=== PATIENT | female | born 1985 ===

== ENCOUNTER 2017-06-30 17:40 | Emergency (ER) | payer OTHER ==
[2015-03-28 09:04] VITALS: Ht 154.9 cm; Wt 68.0 kg
[~2017-06-30] VITALS: Ht 154.9 cm; Wt 68.0 kg
[~2017-06-30 17:40] MED LIST: BUTA1CAP4 PO; Benzocaine 60 ML TP; DOCU240C67 PO; HYDR-317 PO; IBUP800T37 PO; KET10 PO; LEVO88TA43 PO; LOR5/325 PO; Lanolin TP; PREN-85 PO; PREN1TAB50 PO; TUCKS TP
--- NOTE | 2017-06-30 17:43 | ER Report ---
History and Physical Time Seen By MD: 17:42 Hx. of Stated Complaint: sore throat ear pain x 2 days. HPI/ROS was seen at urgent care sent home with majic mouthwash. no better ear and thrat pain, lymphadenopathy Allergies: Coded Allergies: No Known Drug Allergies (Verified , 06/30/17) Home Meds Active Scripts Prednisone (PREDNISONE) 50 Mg Tablet, 50 MG PO QDAY for 5 Days, #5 Prov:FRANCISCO MULLIGAN 06/30/17 Discontinued Reported Medications Butalb/Acetaminophen/Caffeine (FIORICET 50-300-40 MG CAPSULE) 1 Each Capsule, 1 EACH PO Q4H Y for HEADACHE, CAPSULE 06/07/16 Discontinued Scripts Hydrocodone Bit/Acetaminophen (HYDROCODON-ACETAMINOPHEN 5-325) 1 Each Tablet, 1 EACH PO Q4-6H Y for PAIN, #30 TAB Prov:JUDY SUAREZ MD 06/14/16 Ketorolac Tromethamine (KETOROLAC TROMETHAMINE) 10 Mg Tab, 10 MG PO Q6H, #20 TAB Prov:JUDY SUAREZ MD 06/14/16 Past Medical/Surgical History neg Hx Smoking: No Smoking Status: Never Smoker Exposure to Second Hand Smoke?: No Hx Alcohol Use: Yes Family History of: Other Constitutional Vital Sign - Last 24 Hours 06/30/17 06/30/17 06/30/17 06/30/17 17:46 18:00 18:03 18:30 Temp 98.1 Pulse 123 110 107 Resp 16 B/P (MAP) 113/82 110/82 (91) 123/73 (90) Pulse Ox 97 97 97 O2 Delivery Room Air 06/30/17 18:38 Pulse 103 B/P (MAP) 113/70 (84) Pulse Ox 93 O2 Delivery Room Air Intake and Output 06/30/17 06/30/17 07/01/17 15:00 23:00 07:00 Intake Total 800 ml Balance 800 ml Physical Exam 32 year old alert and oriented mild distress head normocephalic and atraumatic , yesenia tm non reddenedn, throay tonsild 3 plus positive lymphadenopathy, hrr, lungs cta, and soft bs x 4 quads . Medical Decision Making Data Points Laboratory Hematology Test 06/30/17 17:47 06/30/17 18:03 Group A Streptococcus Screen Negative (NEGATIVE) Monoscreen Positive (NEGATIVE) Chemistry Test 06/30/17 17:47 06/30/17 18:03 Group A Streptococcus Screen Negative (NEGATIVE) Monoscreen Positive (NEGATIVE) ED Course/Re-evaluation Clinical Indication for ER IV: Hydration ED Course iv fluids 1 liter fentanyl 50 iv for pain, decadron 10 mg po. . better after treatment mono positive f/u pcp Re-evaluation pain 2 on 0-10 after tx f/u pcp mono Decision to Disposition Date: Jun 30, 2017 Decision to Disposition Time: 18:30 Depart Departure Latest Vital Signs Vital Signs Date Time Temp Pulse Resp B/P (MAP) Pulse Ox O2 Delivery O2 Flow Rate FiO2 06/30/17 18:38 103 113/70 (84) 93 Room Air 06/30/17 17:46 98.1 16 Impression: Primary Impression: Mononucleosis Condition: Improved Disposition: HOME OR SELF-CARE Referrals: MIGUEL LAURA DO (PCP) 5 Days New Scripts Prednisone (PREDNISONE) 50 Mg Tablet 50 MG PO QDAY for 5 Days, #5 Prov: FRANCISCO MULLIGAN 06/30/17 Patient Instructions: Mononucleosis (ED) FRANCISCO MULLIGAN Jun 30, 2017 17:43
[2017-06-30] MEDS ORDERED: NS(*) 0.9% 1000 ML BAG 1,000 ML IV ONE (17:53)
[2017-06-30] MEDS ORDERED: KETOROLAC 30 MG/ML VIAL IVP ONE (17:55)
[2017-06-30] MEDS ORDERED: DEXAMETHASONE 4 MG TAB PO ONE (17:55)
[2017-06-30] MEDS ORDERED: PRED50TA22 PO (18:31)
[2017-06-30 18:38] VITALS: BP 113/70
== END 2017-06-30 18:41 | disposition home or self-care (01) ==
LOC: ER 18:04
DX: B27.90 Infectious mononucleosis, unspecified without complication (principal)
CPT/HCPCS: 86308; 87081; 87880; 96361; 96374; 99284; J1885; J7030; J8540